=== PATIENT | male | born 1995 ===

== ENCOUNTER 2021-09-13 18:30 | Observation (INO) | payer OTHER, BC ==
[2021-09-13 18:51] VITALS: BMI 29.6
[2021-09-13] MEDS ORDERED: SODIUM CHLORIDE 0.9% 1000 ML INFUS.BAG IV ONE ×2 (19:00)
[2021-09-13] MEDS ORDERED: LACTATED RINGERS SOLUTION 1,000 ML/1,000 ML INFUS.BAG IV SCH (21:45)
[2021-09-13 22:46] LABS: BASO % 0.5 % (0-2.0); EOS % 3.8 % (0-4.5); HEMATOCRIT 34.4 % (35.4-49); LYMPH % 28.4 % (8-40); MCH 33.3 pg (25.7-33.7); MCHC 34.9 g/dl (32.0-35.9); MEAN CELL VOLUME 95.4 fl (80-96); MEAN PLT VOLUME 8.7 fl (7.5-11.1); MONO % 7.7 % (3.8-10.2); NEUT % 59.6 % (42.8-82.8); PLATELET COUNT 169 10^3/uL (134-434); RDW 12.5 % (11.9-15.9); WHITE BLOOD COUNT 6.8 K/mm3 (4.0-10.0)
[2021-09-13 22:51] LABS: URINE APPEARANCE CLEAR; URINE BILIRUBIN NEGATIVE (NEGATIVE); URINE COLOR YELLOW; URINE GLUCOSE (UA) NEGATIVE (NEGATIVE); URINE KETONE NEGATIVE (NEGATIVE); URINE LEUK ESTERASE NEGATIVE (NEGATIVE); URINE NITRITE NEGATIVE (NEGATIVE); URINE PROTEIN NEGATIVE (NEGATIVE); URINE UROBILINOGEN 0.2 mg/dL (0.2-1.0)
[2021-09-13 23:08] LABS: CHLORIDE 110 mmol/L (98-107); SODIUM 142 mmol/L (136-145)
[2021-09-13 23:13] LABS: CALCIUM 8.2 mg/dL (8.5-10.1)
[2021-09-13 23:14] LABS: ALBUMIN 3.4 g/dl (3.4-5.0); ANION GAP 4 MMOL/L (8-16); BLOOD UREA NITROGEN 12.5 mg/dL (7-18); CO2 28 mmol/L (21-32); GLUCOSE,RANDOM 86 mg/dL (74-106)
[2021-09-13 23:17] LABS: CREATININE 0.9 mg/dL (0.55-1.3); SGPT/ALT 555 U/L (13-61)
[2021-09-13 23:19] LABS: BILIRUBIN,TOTAL 0.8 mg/dL (0.2-1); TOT PROT 6.1 g/dl (6.4-8.2)
[2021-09-13 23:20] LABS: ALK PHOS 35 U/L (45-117)
[2021-09-13 23:44] LABS: SGOT/AST 2055 U/L (15-37)
[2021-09-14] MEDS: SODIUM CHLORIDE 1,000 ML IV SCH ×3 (02:10→23:16)
[2021-09-14 09:20] LABS: CHLORIDE 108 mmol/L (98-107); SODIUM 143 mmol/L (136-145)
[2021-09-14 09:27] LABS: GLUCOSE,RANDOM 80 mg/dL (74-106)
[2021-09-14 09:28] LABS: ANION GAP 6 MMOL/L (8-16); CALCIUM 8.6 mg/dL (8.5-10.1); CO2 29 mmol/L (21-32)
[2021-09-14 09:29] LABS: ALBUMIN 3.5 g/dl (3.4-5.0); BLOOD UREA NITROGEN 9.7 mg/dL (7-18)
[2021-09-14 09:31] LABS: SGPT/ALT 544 U/L (13-61)
[2021-09-14 09:32] LABS: CREATININE 0.8 mg/dL (0.55-1.3)
[2021-09-14 09:33] LABS: BILIRUBIN,TOTAL 0.8 mg/dL (0.2-1); TOT PROT 6.1 g/dl (6.4-8.2)
[2021-09-14 09:34] LABS: ALK PHOS 38 U/L (45-117)
[2021-09-14 10:47] LABS: SGOT/AST 2000 U/L (15-37)
[2021-09-15] MEDS: SODIUM CHLORIDE 1,000 ML IV SCH ×6 (04:04→23:57)
[2021-09-15 08:10] LABS: CHLORIDE 109 mmol/L (98-107); SODIUM 143 mmol/L (136-145)
[2021-09-15 08:16] LABS: BLOOD UREA NITROGEN 10.3 mg/dL (7-18)
[2021-09-15 08:17] LABS: ALBUMIN 3.4 g/dl (3.4-5.0); ANION GAP 5 MMOL/L (8-16); CALCIUM 8.7 mg/dL (8.5-10.1); CO2 29 mmol/L (21-32); GLUCOSE,RANDOM 86 mg/dL (74-106)
[2021-09-15 08:18] LABS: BILIRUBIN,TOTAL 0.6 mg/dL (0.2-1); TOT PROT 6.3 g/dl (6.4-8.2)
[2021-09-15 08:19] LABS: ALK PHOS 39 U/L (45-117)
[2021-09-15 08:20] LABS: CREATININE 0.8 mg/dL (0.55-1.3); SGPT/ALT 471 U/L (13-61)
[2021-09-15 08:34] LABS: SGOT/AST 1239 U/L (15-37)
[2021-09-16] MEDS: SODIUM CHLORIDE 1,000 ML IV SCH ×3 (04:00→12:35)
[2021-09-16 12:28] LABS: ALBUMIN 3.6 g/dl (3.4-5.0); BLOOD UREA NITROGEN 8.1 mg/dL (7-18)
[2021-09-16 12:31] LABS: CREATININE 0.9 mg/dL (0.55-1.3)
[2021-09-16 12:32] LABS: BILIRUBIN,TOTAL 0.5 mg/dL (0.2-1)
[2021-09-16 12:33] LABS: TOT PROT 6.6 g/dl (6.4-8.2)
[2021-09-16 14:20] VITALS: BP 127/83; PULSE 75; TEMP 98
== END 2021-09-16 15:11 | disposition home or self-care (01) ==
LOC: JER 18:30 → JERBED 09-14 01:07 → J8W 09-14 05:22
PROVIDERS: ADMIT Hospitalist; ATTEND Internal Medicine
PROC: 3E0337Z Introduction of Electrolytic and Water Balance Substance into Peripheral Vein, Percutaneous Approach (ICD-10-PCS; principal; 2021-09-14)
DX: M62.82 Rhabdomyolysis (principal); R79.89 Other specified abnormal findings of blood chemistry; Z29.9 Encounter for prophylactic measures, unspecified
CPT/HCPCS: 36415; 80053; 81003; 82550; 82553; 85025; 93005; 93010; 99285-25; C9803; G0378; U0003; U0005